=== PATIENT | male | born 1995 | race Caucasian/White ===

== ENCOUNTER 2017-05-06 07:53 | Emergency (ER) | payer SELFPAY ==
[2017-05-06 08:00] VITALS: BP 123/76; BMI 24.3
[2017-05-06] MEDS ORDERED: PHENERGAN INJ 25 MG IM ONE (08:53)
[2017-05-06] MEDS ORDERED: TORADOL 60 MG VIAL IM ONE (08:53)
--- NOTE | 2017-05-06 08:54 | DR.GENAD ---
HPI - PCP Primary Care Physician: NFD - Complaint/Symptoms Chief Complaint Doctors Comments: Patient is complaining of left CVA and side pain for the past seven days getting worst today. States he went to [facility] and they did a urine with blood in it and told him he was having a kidney stone. States he has been drinking different things at home trying to pass the stone but has been unsuccessful. States he has been drinking increased water, beers, pickle juice and lemon juice but it did not help. States the pain is 12 of 10. State he has been crying with the pain earlier today. States he was having left side and back pain initially but now it is going down his abdomen. States his urine is dark and he has been having nocturia 3-4 times nightly. He denies fever, chills, cold, cough, diarrhea or jet. States he does not have a local doctor. Chief Complaint:: PT C/O KIDNEY STONE THAT HE HAS BEEN HAVING TROUBLE WITH NO BEING ABLE TO PASS IT. PT STATES THE PAIN IS GETTING WORSE AROUND HIS LT FLANK AREA. PT STATES THE PAIN STARTED IN HIS LT BACK AREA AND NOW HAS MOVED. PT STATES HE HAS BEEN DRINKING PLENTY OF FLUIDS. - Nurses notes reviewed Nurses Notes Review: Yes - Source History Provided: Patient - Mode of Arrival Mode of Arrival: Ambulatory - Timing Onset of Chief Complaint: 04/30/17 Came on: Gradually - Duration Duration: Intermittent How lon Duration: Days - Location Location: left CVA and back pain - Severity Severity: Moderate - Modifying Factors Worsens:: movment Improves:: nothing PMH - PMH Past Medical History: No Past Surgical History: Yes Past Surgical History Comment: CHEST SURGERY. - Family History History of Family Medical Conditions: No - Social History Does any household member use tobacco: No Alcohol Use: Rarely Do you use any recreational Drugs:: No Lives With: Family Lives Where: Home - infectious screening In the last 2 months have you had wt loss of >10#?: NO Have you had fever, night sweats or hemotysis?: No Have you traveled outside the country in the last 6 months?: No Isolation: Standard ROS - Review of Systems Constitutional: No Symptoms Reported. negative: See HPI, Chills, Diaphoresis, Fever, Malaise, Weakness, Irritable, Fatigue, Loss of Appetite, Other Eyes: No Symptoms Reported. negative: See HPI, Eye Pain, Blurred Vision, Tearing, Discharge, Photophobia, Diplopia, Other ENTM: No Symptoms Reported. negative: See HPI, Ear Pain, Ear Discharge, Pulling on Ears, Hearing Loss, Nose Pain, Nose Discharge, Epistaxis, Nose Congestion, Mouth Pain, Mouth Swelling, Loose Teeth, Drooling, Throat Pain, Throat Swelling, Ear Foreign Body Respiratoy: No Symptoms Reported. negative: See HPI, Productive Cough, Non- Productive Cough, Moist Cough, Dry Cough, Hacking Cough, Barking Cough, Brassy Cough, Orthopnea, Short of Breath, Stridor, Wheezing, Hemoptysis, Other Cardiovascular: No Symptoms Reported Gastrointestinal/Abdominal: No Symptoms Reported, Abdominal Pain (left CVA pain) Genitourinary: Frequency, Pain. negative: No Symptoms Reported, See HPI, Discharge, Dysuria, Hematuria, Bleeding, Other Neurological: No Symptoms Reported Musculoskeletal: No Symptoms Reported, Left, Back Integumentary: No Symptoms Reported. negative: See HPI, Change in Color, Change in Hair/Nails, Dryness, Lesions, Lumps, Rash, Itching, Wound, Bruises, Juandice, Other Hematologic/Lymphatic: No Symptoms Reported Endocrine: No Symptoms Reported Psychiatric: No Symptoms Reported PE - Vital Signs Vitals: Temperature 99.3 F Pulse Rate 86 Respiratory Rate 20 Blood Pressure 123/76 O2 Sat by Pulse Oximetry 97 - General Limitations: No Limitations General Appearance: Alert, In Distress (moderate) - Head Head Exam: Normal Inspection, Atraumatic, Normocephalic - Eyes Eye exam: Normal Appearance, PERRL, EOMI. negative: Scleral Icterus, Conjunctival Injection, Nystagmus, Miosis, Mydrasis, Periorbital Swelling, Periorbital Tenderness, Other - ENT ENT Exam: Normal Exam, Normal Oropharynx, Normal External Ear Exam, Mucous Membranes Moist, TM's Normal Bilaterally External Ear Exam: Normal External Inspection TM/Canal Exam: Bilateral Normal Nose Exam: Normal Nose Exam Mouth Exam: Normal Inspection. negative: Drooling, Trismus, Lip Swelling, Tongue Elevation, Tongue Swelling, Laceration, Other Throat Exam: Normal Inspection. negative: Tonsillar Erythema, Tonsillomegaly, Tonsillar Exudate, R Peritonsillar Mass, L Peritonsillar Mass, Muffled Voice, Other - Neck Neck Exam: Normal Inspection, Full ROM, Trachea Midline. negative: Tenderness, Meningismus, Lymphadenopathy, Thyromegaly, Other - Chest Chest Inspection: Normal Inspection, Symmetric Chest Wall Rise - Respiratory Respiratory Exam: Normal Lung Sounds Bilat Respiratory Exam: Bilateral Clear to Auscultation - Cardiovascular Cardiovascular Exam: Regular Rate, Normal Rhythm, Normal Heart Sounds. negative : Bradycardia, Tachycardia, Irregular Rhythm, Systolic Murmur, Diastolic Murmur , Rubs, Gallop, Clicks, JVD, +S1, +S2, +S3, +S4, Other - Abdominal Exam Abdominal Exam: Normal Inspection, Normal Bowel Sounds, Soft, Tenderness, Guarding Abdominal Tenderness: LUQ, Moderate - Extremities Extremities Exam: Normal Inspection, Full ROM, Normal Capillary Refill. negative: Tenderness, Edema, Joint Swelling, Calf Tenderness, Other - Back Back Exam: Normal Inspection, Full ROM, (L) CVA Tenderness - Neurologic Neurological Exam: Alert, Oriented X3, CN II-XII Intact, Normal Gait, Reflexes Normal - Psychiatric Psychiatric Exam: Normal Affect, Normal Mood - Skin Skin Exam: Warm, Dry, Intact, Normal Color. negative: Rash, Cyanosis, Diaphoresis, Erythema, Pallor, Mottled, Other ROR - Labs Reviewed Laboratory Results Reviewed?: Yes (all labs and x-ray results reviewed and discussed with patient) Result Diagrams: 05/06/17 09:15 05/06/17 09:15 Laboratory: WBC 11.9 X10^3/uL (3.6-10.0) H 05/06/17 09:15 RBC 4.25 X10^6/uL (4.7-6.0) L 05/06/17 09:15 Hgb 13.6 g/dL (13.5-18.0) 05/06/17 09:15 Hct 39.6 % (42.0-54.0) L 05/06/17 09:15 MCV 93.1 fL (80.0-100.0) 05/06/17 09:15 MCH 32.1 pg (27.0-34.0) 05/06/17 09:15 MCHC 34.5 g/dL (33.0-35.0) 05/06/17 09:15 RDW 12.6 % (11.6-16.5) 05/06/17 09:15 Plt Count 148 X10^3/uL (150.0-450.0) L 05/06/17 09:15 Plt Count Comment Adequate (ADEQUATE) 05/06/17 09:15 MPV 9.1 fL (7.4-11.0) 05/06/17 09:15 Neut % 80.6 % (42.0-75.0) H 05/06/17 09:15 Lymph % 6.5 % (21.0-51.0) L 05/06/17 09:15 [place] % 12.5 % (0.0-13.0) 05/06/17 09:15 Eos % 0.0 % (0.9-2.9) L 05/06/17 09:15 Baso % 0.4 % (0.2-1.0) 05/06/17 09:15 Neut # 9.6 x10^3/uL (2.2-4.8) H 05/06/17 09:15 Lymph # 0.8 X10^3/uL (1.3-2.9) L 05/06/17 09:15 [place] # 1.5 x10^3/uL (0.3-0.8) H 05/06/17 09:15 Eos # 0.0 x10^3/uL (0.0-0.2) 05/06/17 09:15 Baso # 0.0 X10^3/uL (0.0-0.1) 05/06/17 09:15 Absolute Nucleated RBC 0.0 /100WBC 05/06/17 09:15 Total Counted 100 05/06/17 09:15 Neutrophils % (Manual) 91 % (39-76) H 05/06/17 09:15 Lymphocytes % (Manual) 5 % (13-43) L 05/06/17 09:15 Monocytes % (Manual) 4 % (4-9) 05/06/17 09:15 Plt Morphology Comment Normal (NORMAL) 05/06/17 09:15 RBC Morphology Normal (NORMAL) 05/06/17 09:15 Sodium 131 mmol/L (136-145) L 05/06/17 09:15 Corrected Sodium 131 mmol/L (136-145) L 05/06/17 09:15 Potassium 3.7 mmol/L (3.5-5.1) 05/06/17 09:15 Chloride 96 mmol/L (98-107) L 05/06/17 09:15 Carbon Dioxide 28.5 mmol/L (21-32) 05/06/17 09:15 BUN 18 mg/dL (7-18) 05/06/17 09:15 Creatinine 1.23 mg/dL (0.70-1.30) 05/06/17 09:15 Est GFR (MDRD) Af Amer > 60 (>60) 05/06/17 09:15 Est GFR (MDRD) Non-Af > 60 (>60) 05/06/17 09:15 Glucose 118 mg/dL (65-99) H 05/06/17 09:15 Calcium 8.8 mg/dL (8.5-10.1) 05/06/17 09:15 Corrected Calcium TNP 05/06/17 09:15 Total Bilirubin 0.30 mg/dL (0.2-1.0) 05/06/17 09:15 AST 23 Units/L (15-37) 05/06/17 09:15 ALT 41 Units/L (12-78) 05/06/17 09:15 Alkaline Phosphatase 62 Units/L (46-116) 05/06/17 09:15 Total Protein 7.8 g/dL (6.4-8.2) 05/06/17 09:15 Albumin 3.4 g/dL (3.4-5.0) 05/06/17 09:15 Globulin 4.4 g/dL (2.5-4.5) 05/06/17 09:15 Albumin/Globulin Ratio 0.8 Ratio (1.1-2.1) L 05/06/17 09:15 Amylase 49 Units/L (25-115) 05/06/17 09:15 Lipase 77 Units/L (73-393) 05/06/17 09:15 Specimen Type Clean catch urine 05/06/17:19 Urine Color Yellow (YELLOW) 05/06/17:19 Urine Appearance Hazy (CLEAR) 05/06/17 09:19 Urine pH 6.0 (5.0 - 8.0) 05/06/17 09:19 Ur Specific [place] 1.015 (1.000-1.030) 05/06/17 09:19 Urine Protein 3+ (NEGATIVE) 05/06/17 09:19 Urine Glucose (UA) Negative (NEGATIVE) 05/06/17 09:19 Urine Ketones 3+ (NEGATIVE) 05/06/17 09:19 Urine Occult Blood 5+ (NEGATIVE) 05/06/17 09:19 Urine Nitrite Positive (NEGATIVE) 05/06/17 09:19 Urine Bilirubin Negative (NEGATIVE) 05/06/17 09:19 Urine Urobilinogen 2+ (NORMAL) 05/06/17 09:19 Ur Leukocyte Esterase 2+ (NEGATIVE) 05/06/17 09:19 Urine RBC 10-10 /HPF (NEGATIVE) 05/06/17 09:19 Urine WBC 5-6 /HPF (NEGATIVE) 05/06/17 09:19 Ur Squamous Epith Cells Negative /HPF (NEGATIVE) 05/06/17 09: Urine Bacteria Trace /HPF (NEGATIVE) 05/06/17 09:19 Ur Culture Indicated? No/not indicated 05/06/17 09:19 Urine Opiates Screen Negative (NEG=<300) 05/06/17 09: Urine Methadone Screen Negative (NEG=<300) 05/06/17 09:19 Ur Barbiturates Screen Negative (NEG=<200) 05/06/17 09:19 Ur Phencyclidine Scrn Negative (NEG=<25) 05/06/17 09:19 Ur Amphetamines Screen Negative (NEG=<1000) 05/06/17 09:19 U Benzodiazepines Scrn Negative (NEG=<200) 05/06/17 09:19 Urine Cocaine Screen Negative (NEG=<300) 05/06/17 09:19 U Marijuana (THC) Screen Positive (NEG=<50) A 05/06/17 09:19 - Diagnosis Discharge Problem: Hematuria Abdominal pain Qualifiers: Abdominal location: left upper quadrant Qualified Code(s): R10.12 - Left upper quadrant pain Urinary tract infection Qualifiers: Urinary tract infection type: acute cystitis Hematuria presence: with hematuria Qualified Code(s): N30.01 - Acute cystitis with hematuria - Discharge Plan Disposition: HOME, SELF-CARE Condition: Stable Prescriptions: Ketorolac Tromethamine [Toradol Tab] 10 mg PO BID PRN #8 tab PRN Reason: Pain Levofloxacin [LEVAQUIN TAB 500 MG *] 500 mg PO Q24H #10 tab - Follow ups/Referrals Follow ups/Referrals: NFD,None [Primary Care Provider] - 3 days NASEEM BECKER [STAFF PHYSICIAN] - 3 days - Instructions Instructions: Urinary Tract Infection, Adult
[2017-05-06] MEDS ORDERED: PHENERGAN INJ 25 MG ONE (08:55)
[2017-05-06] MEDS ORDERED: TORADOL 60 MG VIAL ONE (08:55)
[2017-05-06 09:27] LABS: BILIRUBIN,URINE NEGATIVE (NEGATIVE); BLOOD/HEMOGLOBIN,URINE 5+ (NEGATIVE); GLUCOSE, URINE NEGATIVE (NEGATIVE); KETONES,URINE 3+ (NEGATIVE); LEUKOCYTE ESTERASE ,URINE 2+ (NEGATIVE); NITRITES,URINE POSITIVE (NEGATIVE); PROTEIN,URINE 3+ (NEGATIVE); UROBILINOGEN,URINE 2+ (NORMAL)
[2017-05-06 09:28] LABS: BASOPHILS % (AUTO) 0.4 % (0.2-1.0); HEMATOCRIT 39.6 % (42.0-54.0); HEMOGLOBIN 13.6 g/dL (13.5-18.0); LYMPHOCYTES # (AUTO) 0.8 X10^3/uL (1.3-2.9); LYMPHOCYTES % (AUTO) 6.5 % (21.0-51.0); MEAN CORPUSCULAR HEMOGLOBIN 32.1 pg (27.0-34.0); MEAN CORPUSCULAR HGB CONC 34.5 g/dL (33.0-35.0); MEAN CORPUSCULAR VOLUME 93.1 fL (80.0-100.0); MEAN PLATELET VOLUME 9.1 fL (7.4-11.0); MONOCYTES # (AUTO) 1.5 x10^3/uL (0.3-0.8); MONOCYTES % (AUTO) 12.5 % (0.0-13.0); NEUTROPHILS # (AUTO) 9.6 x10^3/uL (2.2-4.8); NEUTROPHILS % (AUTO) 80.6 % (42.0-75.0); PLATELET COUNT 148 X10^3/uL (150.0-450.0); RED BLOOD COUNT 4.25 X10^6/uL (4.7-6.0); RED CELL DISTRIBUTION WIDTH 12.6 % (11.6-16.5); WHITE BLOOD COUNT 11.9 X10^3/uL (3.6-10.0)
[2017-05-06 09:32] LABS: APPEARANCE,URINE HAZY (CLEAR); BACTERIA,URINE TRACE /HPF (NEGATIVE); COLOR,URINE YELLOW (YELLOW); SQUAMOUS EPITHELIAL CELL,UR NEGATIVE /HPF (NEGATIVE)
[2017-05-06 09:36] LABS: PLATELET MORPHOLOGY COMMENT NORMAL (NORMAL)
[2017-05-06 09:38] LABS: ALANINE AMINOTRANSFERASE 41 Units/L (12-78); ALBUMIN 3.4 g/dL (3.4-5.0); ALKALINE PHOSPHATASE 62 Units/L (46-116); AMYLASE 49 Units/L (25-115); ASPARTATE AMINO TRANSFERASE 23 Units/L (15-37); BLOOD UREA NITROGEN 18 mg/dL (7-18); CALCIUM 8.8 mg/dL (8.5-10.1); CARBON DIOXIDE 28.5 mmol/L (21-32); CHLORIDE 96 mmol/L (98-107); COR NA(FOR HYPERGLY) 131 mmol/L (136-145); CREATININE 1.23 mg/dL (0.70-1.30); LIPASE 77 Units/L (73-393); SODIUM 131 mmol/L (136-145); TOTAL PROTEIN 7.8 g/dL (6.4-8.2); eGFR BLACK RACES > 60 (>60); eGFR NON BLACK RACES > 60 (>60)
--- NOTE | 2017-05-06 09:39 | CT ---
STUDY: CT ABDOMEN AND PELVIS WITHOUT IV AND ORAL CONTRAST HISTORY: Patient finds a kidney stone that he has been having trouble with not being able pass. Pain worse around left flank area. Comparison: None. Technique: Multiple axial images of the abdomen and pelvis were obtained from the lung bases to the pubic symphysis without the administration of IV contrast. Findings: The visualized portions of the lung bases are unremarkable. CT abdomen: The liver, gallbladder, spleen, pancreas, and adrenal glands are normal in appearance. No significant mesenteric lymphadenopathy or inflammatory stranding is appreciated. Both kidneys are normal in appe arance. There is no evidence of nephrolithiasis or hydronephrosis. No perinephric or periureteric fat stranding is identified. Both ureters define a normal course. The stomach is normal in appearance. The small bowel is normal in appearance, without evidence of bow el wall thickening or small bowel obstruction. The terminal ileum and cecum are normal. The appendix is not clearly identified. There is no evidenc e of right lower quadrant fat stranding. The ascending and transverse colon are within normal limits. The descending colon is normal in appearance. CT pelvis: The sigmoid colon is normal in appearance. The rectum is normal. The urinary bladder is no rmal. There are several punctate calcifications in the pelvis, most consistent with phleboliths. Ther e is 1 calcification in close proximity to the left ureter, but this appears to be external to the le ft ureter. No abnormal fluid collections are identified in the pelvis. There is no evidence of acute osseous abnormality. IMPRESSION: 1. No evidence of acute abdominal or pelvic abnormality. Please see above for detail Reported By:
[2017-05-06] MEDS ORDERED: PYRIDIUM PO STA (10:25)
[2017-05-06] MEDS ORDERED: LEVAQUIN TAB 500 MG PO STA (10:25)
[2017-05-06] MEDS ORDERED: PYRIDIUM PO ONE (10:38)
[2017-05-06] MEDS ORDERED: LEVAQUIN TAB 500 MG ONE (10:39)
== END 2017-05-06 11:16 | disposition home or self-care (01) ==
LOC: ER 08:11
DX: N30.01 Acute cystitis with hematuria (principal); R31.9 Hematuria, unspecified; R10.12 Left upper quadrant pain; B96.29 Other Escherichia coli [E. coli] as the cause of diseases classified elsewhere
CPT/HCPCS: 36415; 74176; 80053; 80307; 81001; 82150; 83690; 85025; 87086; 87088; 87186; 96372; 99282; 99283; G0434; J1885; J2550